=== PATIENT | female | born 2000 | race African-American/Black ===

== ENCOUNTER 2020-11-20 10:07 | Emergency (ER) | payer OTHER ==
[2020-11-20 10:37] LABS: HCT 45.2 % (37.0-47.0); HGB 14.6 g/dL (12.5-16.0)
== END 2020-11-20 11:15 | disposition home or self-care (01) ==
LOC: FER 10:07
PROVIDERS: Emergency Medicine
DX: N92.0 Excessive and frequent menstruation with regular cycle (principal); N92.6 Irregular menstruation, unspecified; F17.290 Nicotine dependence, other tobacco product, uncomplicated
CPT/HCPCS: 36415; 85014; 85018; 99284